=== PATIENT | male | born 1935 | race Caucasian/White ===

== ENCOUNTER 2016-05-31 09:04 | Emergency (ER) | payer OTHER ==
[~2016-05-31] VITALS: Ht 170.2 cm; Wt 90.9 kg
[~2016-05-31 09:04] MED LIST: CENTTAB9 PO; DARV PO; DIOV40TA PO; GLIMEPIRIDE; SULF1TAB47 PO
[2016-05-31 09:08] VITALS: BP 151/76; PULSE 88; RESP 18; TEMP 98.5; O2SAT 98
--- NOTE | 2016-05-31 09:29 | PD ---
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 He has been under treatment for this since 2012 when he presented with bowel obstruction. He has a moderately differentiated adenocarcinoma. He has had multiple treatments. He had chemotherapy yesterday with Dr. Cordova. He has been having sporadic bleeding into his ostomy bag he has not had any bleeding recently. He hasn't seen Dr. Cordova yesterday for his chemotherapy and was given a form indicating that he should go to the ER after his treatment today for a bleeding scan. Patient denies any specific complaints. PFSH Past Medical History Chemotherapy: Yes Diabetes: Yes Diminished Hearing: No Hypertension: Yes Past Surgical History Tonsillectomy: Yes Social History Alcohol Use: Yes (RARE) Tobacco Use: No Substance Use: No Allergies-Medications (Allergen,Severity, Reaction): Coded Allergies: Atacand (Verified Allergy, Mild, INCREASED LIVER ENZYMES,INCREASED PULSE RATE, 05/31/16) Pseudoephedrine (Verified Allergy, Unknown, 05/31/16) Uncoded Allergies: STATIN DRUGS (Allergy, Mild, INCREASED LIVER ENZYMES, 04/08/08) Reported Meds & Prescriptions Reported Meds & Active Scripts Active Reported Doxazosin (Doxazosin Mesylate) 2 Mg Tab 2 Mg PO DAILY Zyrtec Allergy (Cetirizine HCl) 10 Mg Cap 10 Mg PO DAILY Glimepiride 4 Mg Tab 4 Mg PO BIDAC Metformin ER (Metformin HCl) 500 Mg Paula 500 Mg PO BID With evening meal Multivitamin Adult (Multiple Vitamins W/ Minerals) 1 Chw Chw Valsartan 40 Mg Tab 40 Mg PO BID Review of Systems General / Constitutional: No: Fever, Chills Gastrointestinal: No: Diarrhea, Abdominal Pain Physical Exam Narrative GENERAL: Well-developed male SKIN: Focused skin assessment warm/dry. HEAD: Atraumatic. Normocephalic. EYES: Pupils equal and round. No scleral icterus. No injection or drainage. ENT: No nasal bleeding or discharge. Mucous membranes pink and moist. NECK: Trachea midline. No JVD. CARDIOVASCULAR: Regular rate and rhythm. No murmur appreciated. RESPIRATORY: No accessory muscle use. Clear to auscultation. Breath sounds equal bilaterally. GASTROINTESTINAL: Abdomen soft, non-tender, there is a colostomy in place. There is no blood coming from the colostomy site MUSCULOSKELETAL: No obvious deformities. No clubbing. No cyanosis. No edema. NEUROLOGICAL: Awake and alert. No obvious cranial nerve deficits. Motor grossly within normal limits. Normal speech. PSYCHIATRIC: Appropriate mood and affect; insight and judgment normal. Data Data Last Documented VS Vital Signs Date Time Temp Pulse Resp B/P Pulse Ox O2 Delivery O2 Flow Rate FiO2 05/31/16 09:08 98.5 88 18 151/76 98 MDM Medical Decision Making Medical Screen Exam Complete: Yes Emergency Medical Condition: Yes Medical Record Reviewed: Yes Differential Diagnosis Patient is known to have rectal cancer. He has had a sporadic bleeding into his ostomy bag and thoughts have been given to getting a bleeding scan when he is bleeding. He got instructions when he was discharged from the oncologist yesterday that he should go to the ER for bleeding scan. Patient was not bleeding at this time though and I don't think a bleeding scan would be helpful. I have tried to call Dr. Anthony Narrative Course Patient has no bleeding now and I don't think a bleeding scan of the indicated. I discussed with Dr. Harris and appears the patient is here as a result of a misunderstanding though his discharge instructions it safe for him to come here Diagnosis Primary Impression: Rectal cancer Disposition: 01 DISCHARGE HOME Condition: Stable Kaushal Ibanez MD May 31, 2016 09:29
[2016-05-31] MEDS ORDERED: METF500T4 PO (09:31)
[2016-05-31] MEDS ORDERED: ZYRT10CA PO (09:31)
[2016-05-31] MEDS ORDERED: GLIM4TAB PO (09:31)
[2016-05-31] MEDS ORDERED: VALS1TAB63 PO (09:31)
[2016-05-31] MEDS ORDERED: MULT1CHW70 (09:31)
[2016-05-31] MEDS ORDERED: DOXA1TAB35 PO (09:31)
== END 2016-05-31 10:28 | disposition home or self-care (01) ==
LOC: PHED 09:04
DX: C20 Malignant neoplasm of rectum (principal); C78.6 Secondary malignant neoplasm of retroperitoneum and peritoneum; E11.9 Type 2 diabetes mellitus without complications; I10 Essential (primary) hypertension
CPT/HCPCS: 99282